=== PATIENT | female | born 1950 | race Caucasian/White ===

== ENCOUNTER 2023-03-08 17:09 | Inpatient (IN) | payer MEDICARE ==
[2023-03-08 17:57] LABS: #Basophils 0.1 thou/uL (0.0-0.2); #Eosinphils 0.3 thou/uL (0.0-0.7); #Monocytes 0.8 thou/uL (0.11-0.59); #Neutrophils 6.6 thou/uL (1.40-6.50); %Basophils 0.7 % (0.0-1.0); %Eosinophils 3.4 % (0.0-10.0); %Lymphocytes 13.3 % (21.0-51.0); %Monocytes 8.6 % (0.0-10.0); %Neutrophils 73.6 % (42.0-75.0); Hematocrit 39.5 % (36.0-47.0); Hemoglobin 13.1 g/dL (12.0-16.0); Mean Corpuscular HGB CONC 33.2 g/dL (32.0-36.0); Mean Corpuscular Hemoglobin 31.2 pg (27.0-31.0); Mean Platelet Volume 11.4 fL (7.4-10.4); Platelet Count 265 10x3/uL (130-400); RBC Distribution Width 16.3 % (11.5-14.5)
[2023-03-08] MEDS ORDERED: Furosemide 40 MG/4 ML VIAL ONE (18:19)
[2023-03-08 18:33] LABS: ALT (SGPT) 25 U/L (8-55); AST (SGOT) 25 U/L (5-34); Albumin 4.3 g/dL (3.4-4.8); Alkaline Phosphatase 106 U/L (40-110); Anion Gap 21 mmol/L (10-20); BUN (Urea Nitrogen) 64 mg/dL (9.8-20.1); Bilirubin, Total 0.8 mg/dL (0.2-1.2); Calc. Creatinine Clearance 0 mL/min (70-130); Calcium 9.9 mg/dL (7.8-10.44); Carbon Dioxide 26 mmol/L (23-31); Chloride 94 mmol/L (98-107); Estimated GFR 17; Globulin 3.7 g/dL (2.4-3.5); Glucose 228 mg/dL (83-110); Potassium 4.5 mmol/L (3.5-5.1); Sodium 136 mmol/L (136-145)
[2023-03-08] MEDS ORDERED: Nitroglycerin 2% Ointment 1 INCH/1 GM Packet ONE (18:36)
[2023-03-08 18:47] LABS: Troponin I 0.035 ng/mL (< 0.028)
[2023-03-08 19:48] LABS: Actual Bicarbonate (HCO3v) 27.4 mEq/L (22-28); Base Excess 1.8 mEq/L (-2.0 to +3.0); Calcium, Ionized (venous) 1.13 mmol/L (1.16-1.32); Chloride (VBG) 95 mmol/L (98-106); Hematocrit-VBG 40 % (36.0-47.0); Hemoglobin (Hb) 13.7 g/dL (11.7-16.1); Potassium (VBG) 4.82 mmol/L (3.70-5.30); Sodium 137 mmol/L (133-146); pH (venous) 7.384 (7.32-7.43)
[2023-03-08] MEDS ORDERED: Glucagon 1 MG/ML KIT IM PRN (21:06)
[2023-03-08] MEDS ORDERED: Dextrose 50% Abboject 50 ML SYRINGE SLOW IVP PRN (21:06)
[2023-03-08] MEDS ORDERED: Dextrose 5% in Water 1,000 ML IV PRN (21:06)
[2023-03-08] MEDS ORDERED: Calcium Carbonate 500 MG ChewTAB PO PRN (21:07)
[2023-03-08] MEDS ORDERED: HumaLOG 300 UNITS/3 ML VIAL SC PRN (21:07)
[2023-03-08] MEDS ORDERED: Acetaminophen 325 MG TAB PO PRN (21:07)
[2023-03-08] MEDS ORDERED: Ipratropium/Albuterol 3 ML NEB NEB PRN (21:32)
[2023-03-08] MEDS ORDERED: Ipratropium/Albuterol 3 ML NEB NEB SCH (21:45)
[2023-03-08] MEDS ORDERED: predniSONE 20 MG TAB PO SCH (22:00)
[2023-03-08 22:17] LABS: Hemoglobin A1c 10.4 % (4.0-6.0)
[2023-03-08 22:31] LABS: Cardiac Risk 3.4 (Less than 4.5)
[2023-03-08 22:35] LABS: Troponin I 0.044 ng/mL (< 0.028)
[2023-03-09 00:11] LABS: Hep C IgG Ab Non-Reactive S/CO (NonReactive)
[2023-03-09] MEDS ORDERED: Hydrochlorothiazide 25 MG TAB PO PRN (00:17)
[2023-03-09 00:25] LABS: SARS-CoV-2 NAA Rapid Test Not Detected (NotDetected)
[2023-03-09] MEDS: Gabapentin 100 MG CAP PO SCH ×2 (00:43→12:45)
[2023-03-09] MEDS: Dronedarone HCl 400 MG TAB PO SCH ×2 (00:44→12:45)
[2023-03-09] MEDS: Apixaban 5 MG TAB PO SCH ×2 (00:44→12:44)
[2023-03-09] MEDS: [UNRECOGNIZED DRUG - REMARK] PO SCH ×3 (01:41→13:05)
[2023-03-09] MEDS: CETIRIZINE 10 MG PO SCH (01:41)
[2023-03-09] MEDS: INSULN SC SCH ×2 (01:41→12:47)
[2023-03-09] MEDS: INSULIN DEGLUDEC 100 UNIT/ML SC SCH ×2 (01:41→12:47)
[2023-03-09] MEDS: Clobetasol 0.05% Cream 15 gm Tube TOP SCH ×2 (01:43→12:45)
[2023-03-09 01:45] LABS: Troponin I 0.047 ng/mL (< 0.028)
[2023-03-09] MEDS: Montelukast Sodium 10 mg Tablet PO SCH (01:49)
[2023-03-09 03:03] VITALS: BMI 42.5
[2023-03-09 03:58] LABS: #Basophils 0.1 thou/uL (0.0-0.2); #Eosinphils 0.3 thou/uL (0.0-0.7); #Monocytes 0.7 thou/uL (0.11-0.59); #Neutrophils 5.1 thou/uL (1.40-6.50); %Basophils 0.6 % (0.0-1.0); %Eosinophils 4.4 % (0.0-10.0); %Lymphocytes 19.3 % (21.0-51.0); %Monocytes 9.6 % (0.0-10.0); %Neutrophils 65.7 % (42.0-75.0); Hematocrit 35.8 % (36.0-47.0); Hemoglobin 11.7 g/dL (12.0-16.0); Mean Corpuscular HGB CONC 32.7 g/dL (32.0-36.0); Mean Corpuscular Hemoglobin 30.6 pg (27.0-31.0); Mean Corpuscular Volume 93.7 fl (78.0-98.0); Mean Platelet Volume 11.6 fL (7.4-10.4); Platelet Count 246 10x3/uL (130-400); RBC Distribution Width 15.9 % (11.5-14.5); Red Blood Cell (RBC) Count 3.82 mill/uL (4.20-5.40); White Blood Cell (WBC) Count 7.7 10x3/uL (4.8-10.8)
[2023-03-09 04:23] LABS: Anion Gap 17 mmol/L (10-20); BUN (Urea Nitrogen) 66 mg/dL (9.8-20.1); Calc. Creatinine Clearance 31 mL/min (70-130); Calcium 9.1 mg/dL (7.8-10.44); Carbon Dioxide 30 mmol/L (23-31); Chloride 94 mmol/L (98-107); Estimated GFR 18; Glucose 231 mg/dL (83-110); Magnesium 2.6 mg/dL (1.6-2.6); Potassium 4.4 mmol/L (3.5-5.1); Sodium 137 mmol/L (136-145)
[2023-03-09] MEDS: predniSONE 20 MG TAB PO SCH (08:30)
[2023-03-09] MEDS: Fluticasone Propionate Nasal Spray 16 gm Bottle NASAL SCH (08:32)
[2023-03-09] MEDS: Benzonatate 100 MG CAP PO SCH ×2 (08:32→14:24)
[2023-03-09] MEDS ORDERED: Empagliflozin 25 MG TAB PO SCH (09:00)
[2023-03-09] MEDS ORDERED: Rosuvastatin 20 MG TAB PO SCH ×2 (09:00→12:30)
[2023-03-09] MEDS ORDERED: Cetirizine HCl 10 MG TAB PO SCH (09:00)
[2023-03-09] MEDS ORDERED: Spironolactone 25 MG TAB PO SCH (09:00)
[2023-03-09] MEDS ORDERED: Amlodipine 10 MG TAB PO SCH (09:00)
[2023-03-09] MEDS ORDERED: Loratadine 10 MG TAB PO SCH (09:00)
[2023-03-09] MEDS ORDERED: DAPAGLIFLOZIN (FARXIGA) 10 MG TABLET PO SCH (09:00)
[2023-03-09] MEDS: Polyethylene Glycol 3350 17 GM Packet PO SCH (09:04)
[2023-03-09] MEDS: Famotidine 20 MG TAB PO SCH (09:05)
[2023-03-09] MEDS: LEVOTHYROXINE SODIUM 150 MCG PO SCH (09:09)
[2023-03-09] MEDS: Furosemide 40 MG/4 ML VIAL SLOW IVP SCH (09:10)
[2023-03-09] MEDS ORDERED: Metolazone 5 MG TAB PO SCH (10:00)
[2023-03-09] MEDS: Amlodipine 10 MG TAB PO SCH (12:44)
[2023-03-09] MEDS: Spironolactone 25 MG TAB PO SCH (12:46)
[2023-03-09] MEDS: Rosuvastatin 10 MG TAB PO SCH (12:46)
[2023-03-09] MEDS: DAPAGLIFLOZIN (FARXIGA) 10 MG TABLET PO SCH (13:03)
[2023-03-10] MEDS: [UNRECOGNIZED DRUG - REMARK] PO SCH ×2 (00:23→12:32)
[2023-03-10] MEDS: Clobetasol 0.05% Cream 15 gm Tube TOP SCH ×2 (00:23→12:30)
[2023-03-10] MEDS: CETIRIZINE 10 MG PO SCH (00:23)
[2023-03-10] MEDS: Montelukast Sodium 10 mg Tablet PO SCH ×2 (00:24→20:32)
[2023-03-10] MEDS: Apixaban 5 MG TAB PO SCH ×2 (00:24→12:29)
[2023-03-10] MEDS: Gabapentin 100 MG CAP PO SCH ×2 (00:24→12:30)
[2023-03-10] MEDS: Dronedarone HCl 400 MG TAB PO SCH ×2 (00:24→12:29)
[2023-03-10] MEDS: Benzonatate 100 MG CAP PO SCH ×5 (00:27→19:14)
[2023-03-10] MEDS: INSULN SC SCH ×2 (00:45→12:31)
[2023-03-10] MEDS: INSULIN DEGLUDEC 100 UNIT/ML SC SCH ×2 (00:45→12:31)
[2023-03-10 03:55] LABS: #Eosinphils 0.4 thou/uL (0.0-0.7); #Monocytes 0.9 thou/uL (0.11-0.59); #Neutrophils 5.9 thou/uL (1.40-6.50); %Basophils 0.5 % (0.0-1.0); %Monocytes 10.3 % (0.0-10.0); %Neutrophils 69.8 % (42.0-75.0); Hematocrit 37.2 % (36.0-47.0); Mean Corpuscular HGB CONC 32.3 g/dL (32.0-36.0); Mean Corpuscular Hemoglobin 30.4 pg (27.0-31.0); Mean Corpuscular Volume 94.2 fl (78.0-98.0); Platelet Count 240 10x3/uL (130-400); RBC Distribution Width 15.9 % (11.5-14.5); Red Blood Cell (RBC) Count 3.95 mill/uL (4.20-5.40); White Blood Cell (WBC) Count 8.4 10x3/uL (4.8-10.8)
[2023-03-10 04:18] LABS: Phosphorus 5.9 mg/dL (2.3-4.7)
[2023-03-10 04:19] LABS: Anion Gap 16 mmol/L (10-20); BUN (Urea Nitrogen) 64 mg/dL (9.8-20.1); Calc. Creatinine Clearance 30 mL/min (70-130); Calcium 8.9 mg/dL (7.8-10.44); Carbon Dioxide 31 mmol/L (23-31); Chloride 95 mmol/L (98-107); Estimated GFR 18; Glucose 144 mg/dL (83-110); Potassium 4.5 mmol/L (3.5-5.1); Sodium 137 mmol/L (136-145)
[2023-03-10] MEDS: Fluticasone Propionate Nasal Spray 16 gm Bottle NASAL SCH (08:59)
[2023-03-10] MEDS: Furosemide 40 MG/4 ML VIAL SLOW IVP SCH (09:10)
[2023-03-10] MEDS: predniSONE 20 MG TAB PO SCH (09:10)
[2023-03-10] MEDS: Famotidine 20 MG TAB PO SCH (09:10)
[2023-03-10] MEDS: Polyethylene Glycol 3350 17 GM Packet PO SCH (09:10)
[2023-03-10] MEDS: LEVOTHYROXINE SODIUM 150 MCG PO SCH (09:11)
[2023-03-10] MEDS ORDERED: Metolazone 5 MG TAB PO SCH (10:30)
[2023-03-10] MEDS: Ipratropium/Albuterol 3 ML NEB NEB SCH ×4 (10:38→22:25)
[2023-03-10] MEDS: Spironolactone 25 MG TAB PO SCH (12:28)
[2023-03-10] MEDS: Amlodipine 10 MG TAB PO SCH (12:29)
[2023-03-10] MEDS: Rosuvastatin 10 MG TAB PO SCH (12:29)
[2023-03-10] MEDS: DAPAGLIFLOZIN (FARXIGA) 10 MG TABLET PO SCH (12:31)
[2023-03-10] MEDS: HumaLOG 300 UNITS/3 ML VIAL SC PRN (20:31)
[2023-03-11] MEDS: Clobetasol 0.05% Cream 15 gm Tube TOP SCH ×2 (00:14→13:13)
[2023-03-11] MEDS: CETIRIZINE 10 MG PO SCH (00:15)
[2023-03-11] MEDS: Gabapentin 100 MG CAP PO SCH ×2 (00:15→13:12)
[2023-03-11] MEDS: [UNRECOGNIZED DRUG - REMARK] PO SCH ×2 (00:15→13:12)
[2023-03-11] MEDS: Dronedarone HCl 400 MG TAB PO SCH ×2 (00:15→13:11)
[2023-03-11] MEDS: Apixaban 5 MG TAB PO SCH ×2 (00:16→13:11)
[2023-03-11] MEDS: INSULN SC SCH ×2 (00:17→13:15)
[2023-03-11] MEDS: INSULIN DEGLUDEC 100 UNIT/ML SC SCH ×2 (00:17→13:15)
[2023-03-11] MEDS: Ipratropium/Albuterol 3 ML NEB NEB SCH ×6 (03:01→23:52)
[2023-03-11 04:20] LABS: #Monocytes 0.8 thou/uL (0.11-0.59); %Basophils 0.1 % (0.0-1.0); %Eosinophils 0.1 % (0.0-10.0); %Lymphocytes 10.2 % (21.0-51.0); %Monocytes 8.7 % (0.0-10.0); %Neutrophils 80.4 % (42.0-75.0); Hematocrit 33.7 % (36.0-47.0); Hemoglobin 11.2 g/dL (12.0-16.0); Mean Corpuscular HGB CONC 33.2 g/dL (32.0-36.0); Mean Corpuscular Volume 93.4 fl (78.0-98.0); Mean Platelet Volume 11.5 fL (7.4-10.4); Platelet Count 241 10x3/uL (130-400); RBC Distribution Width 15.4 % (11.5-14.5); Red Blood Cell (RBC) Count 3.61 mill/uL (4.20-5.40); White Blood Cell (WBC) Count 8.7 10x3/uL (4.8-10.8)
[2023-03-11 04:42] LABS: Anion Gap 16 mmol/L (10-20); BUN (Urea Nitrogen) 75 mg/dL (9.8-20.1); Calc. Creatinine Clearance 30 mL/min (70-130); Calcium 8.8 mg/dL (7.8-10.44); Carbon Dioxide 31 mmol/L (23-31); Chloride 91 mmol/L (98-107); Estimated GFR 18; Glucose 360 mg/dL (83-110); Phosphorus 5.1 mg/dL (2.3-4.7); Potassium 4.7 mmol/L (3.5-5.1); Sodium 133 mmol/L (136-145)
[2023-03-11] MEDS: HumaLOG 300 UNITS/3 ML VIAL SC PRN ×4 (05:54→20:31)
[2023-03-11 07:26] LABS: Phosphorus 5.9 mg/dL (2.3-4.7)
[2023-03-11] MEDS ORDERED: predniSONE 20 MG TAB PO SCH (08:00)
[2023-03-11] MEDS ORDERED: Metolazone 5 MG TAB PO SCH (08:30)
[2023-03-11] MEDS: Benzonatate 100 MG CAP PO SCH ×3 (09:33→20:36)
[2023-03-11] MEDS: Famotidine 20 MG TAB PO SCH (09:33)
[2023-03-11] MEDS: Fluticasone Propionate Nasal Spray 16 gm Bottle NASAL SCH (09:34)
[2023-03-11] MEDS: Polyethylene Glycol 3350 17 GM Packet PO SCH (09:34)
[2023-03-11] MEDS: Furosemide 40 MG/4 ML VIAL SLOW IVP SCH (09:34)
[2023-03-11] MEDS: LEVOTHYROXINE SODIUM 150 MCG PO SCH (09:37)
[2023-03-11] MEDS ORDERED: Insulin Glargine 30 UNITS/0.3 ML VIAL SC SCH (12:00)
[2023-03-11] MEDS: Amlodipine 10 MG TAB PO SCH (13:11)
[2023-03-11] MEDS: Rosuvastatin 10 MG TAB PO SCH (13:11)
[2023-03-11] MEDS: Spironolactone 25 MG TAB PO SCH (13:11)
[2023-03-11] MEDS: DAPAGLIFLOZIN (FARXIGA) 10 MG TABLET PO SCH (13:16)
[2023-03-11] MEDS: Montelukast Sodium 10 mg Tablet PO SCH (20:30)
[2023-03-12] MEDS: Apixaban 5 MG TAB PO SCH ×2 (00:35→12:27)
[2023-03-12] MEDS: Dronedarone HCl 400 MG TAB PO SCH ×2 (00:35→13:41)
[2023-03-12] MEDS: Clobetasol 0.05% Cream 15 gm Tube TOP SCH ×2 (00:35→12:29)
[2023-03-12] MEDS: Gabapentin 100 MG CAP PO SCH ×2 (00:35→13:41)
[2023-03-12] MEDS: [UNRECOGNIZED DRUG - REMARK] PO SCH (00:35)
[2023-03-12] MEDS: INSULIN DEGLUDEC 100 UNIT/ML SC SCH ×2 (00:36→13:43)
[2023-03-12] MEDS: INSULN SC SCH ×2 (00:36→13:43)
[2023-03-12] MEDS: CETIRIZINE 10 MG PO SCH (00:36)
[2023-03-12] MEDS: Ipratropium/Albuterol 3 ML NEB NEB SCH ×6 (02:34→22:10)
[2023-03-12 06:24] LABS: #Eosinphils 0.1 thou/uL (0.0-0.7); #Monocytes 0.8 thou/uL (0.11-0.59); #Neutrophils 5.6 thou/uL (1.40-6.50); %Basophils 0.4 % (0.0-1.0); %Eosinophils 1.3 % (0.0-10.0); %Lymphocytes 15.5 % (21.0-51.0); %Monocytes 10.6 % (0.0-10.0); %Neutrophils 71.8 % (42.0-75.0); Hematocrit 35.6 % (36.0-47.0); Hemoglobin 11.8 g/dL (12.0-16.0); Mean Corpuscular HGB CONC 33.1 g/dL (32.0-36.0); Mean Corpuscular Hemoglobin 30.6 pg (27.0-31.0); Mean Corpuscular Volume 92.5 fl (78.0-98.0); Mean Platelet Volume 11.5 fL (7.4-10.4); Platelet Count 247 10x3/uL (130-400); RBC Distribution Width 15.6 % (11.5-14.5); Red Blood Cell (RBC) Count 3.85 mill/uL (4.20-5.40); White Blood Cell (WBC) Count 7.8 10x3/uL (4.8-10.8)
[2023-03-12 06:49] LABS: Anion Gap 17 mmol/L (10-20); BUN (Urea Nitrogen) 85 mg/dL (9.8-20.1); Calc. Creatinine Clearance 30 mL/min (70-130); Calcium 9.1 mg/dL (7.8-10.44); Carbon Dioxide 29 mmol/L (23-31); Chloride 94 mmol/L (98-107); Estimated GFR 18; Glucose 223 mg/dL (83-110); Potassium 4.4 mmol/L (3.5-5.1); Sodium 136 mmol/L (136-145)
[2023-03-12 07:11] LABS: Anion Gap 17 mmol/L (10-20); BUN (Urea Nitrogen) 86 mg/dL (9.8-20.1); BUN/Creatinine Ratio 30.71; Calc. Creatinine Clearance 29 mL/min (70-130); Calcium 9.1 mg/dL (7.8-10.44); Carbon Dioxide 29 mmol/L (23-31); Chloride 94 mmol/L (98-107); Estimated GFR 18; Glucose 223 mg/dL (83-110); Phosphorus 6.2 mg/dL (2.3-4.7); Potassium 4.4 mmol/L (3.5-5.1); Sodium 136 mmol/L (136-145)
[2023-03-12] MEDS ORDERED: predniSONE 5 MG TAB PO SCH (08:00)
[2023-03-12] MEDS: Benzonatate 100 MG CAP PO SCH ×3 (08:22→20:30)
[2023-03-12] MEDS: Fluticasone Propionate Nasal Spray 16 gm Bottle NASAL SCH (08:24)
[2023-03-12] MEDS: Furosemide 40 MG/4 ML VIAL SLOW IVP SCH (08:24)
[2023-03-12] MEDS: LEVOTHYROXINE SODIUM 150 MCG PO SCH (08:25)
[2023-03-12] MEDS: Polyethylene Glycol 3350 17 GM Packet PO SCH (08:25)
[2023-03-12] MEDS ORDERED: Insulin Glargine 30 UNITS/0.3 ML VIAL SC SCH (09:00)
[2023-03-12] MEDS: Amlodipine 10 MG TAB PO SCH (12:26)
[2023-03-12] MEDS: Spironolactone 25 MG TAB PO SCH (12:27)
[2023-03-12] MEDS: Rosuvastatin 10 MG TAB PO SCH (12:27)
[2023-03-12] MEDS: DAPAGLIFLOZIN (FARXIGA) 10 MG TABLET PO SCH (13:54)
[2023-03-12] MEDS: Loratadine 10 MG TAB PO SCH (20:30)
[2023-03-12] MEDS: Montelukast Sodium 10 mg Tablet PO SCH (20:30)
[2023-03-13] MEDS: [UNRECOGNIZED DRUG - REMARK] PO SCH ×3 (00:04→12:36)
[2023-03-13] MEDS: Dronedarone HCl 400 MG TAB PO SCH ×2 (00:25→12:35)
[2023-03-13] MEDS: Gabapentin 100 MG CAP PO SCH ×2 (00:25→12:33)
[2023-03-13] MEDS: Apixaban 5 MG TAB PO SCH ×2 (00:25→12:35)
[2023-03-13] MEDS: Clobetasol 0.05% Cream 15 gm Tube TOP SCH ×2 (00:26→12:35)
[2023-03-13] MEDS: CETIRIZINE 10 MG PO SCH (00:26)
[2023-03-13] MEDS: INSULIN DEGLUDEC 100 UNIT/ML SC SCH (00:27)
[2023-03-13] MEDS: INSULN SC SCH (00:27)
[2023-03-13] MEDS: Ipratropium/Albuterol 3 ML NEB NEB SCH ×6 (02:03→22:30)
[2023-03-13 04:56] LABS: #Eosinphils 0.2 thou/uL (0.0-0.7); #Monocytes 0.9 thou/uL (0.11-0.59); %Basophils 0.4 % (0.0-1.0); %Eosinophils 2.6 % (0.0-10.0); %Lymphocytes 16.7 % (21.0-51.0); %Monocytes 12.5 % (0.0-10.0); %Neutrophils 67.7 % (42.0-75.0); Hematocrit 35.6 % (36.0-47.0); Hemoglobin 11.6 g/dL (12.0-16.0); Mean Corpuscular HGB CONC 32.6 g/dL (32.0-36.0); Mean Corpuscular Hemoglobin 30.7 pg (27.0-31.0); Mean Corpuscular Volume 94.2 fl (78.0-98.0); Mean Platelet Volume 11.7 fL (7.4-10.4); Platelet Count 251 10x3/uL (130-400); RBC Distribution Width 15.8 % (11.5-14.5); Red Blood Cell (RBC) Count 3.78 mill/uL (4.20-5.40); White Blood Cell (WBC) Count 7.4 10x3/uL (4.8-10.8)
[2023-03-13 05:19] LABS: Albumin 3.8 g/dL (3.4-4.8); Anion Gap 16 mmol/L (10-20); BUN (Urea Nitrogen) 97 mg/dL (9.8-20.1); BUN/Creatinine Ratio 29.94; Calc. Creatinine Clearance 25 mL/min (70-130); Calcium 8.9 mg/dL (7.8-10.44); Carbon Dioxide 32 mmol/L (23-31); Chloride 93 mmol/L (98-107); Estimated GFR 15; Glucose 230 mg/dL (83-110); Phosphorus 5.6 mg/dL (2.3-4.7); Potassium 4.4 mmol/L (3.5-5.1); Sodium 137 mmol/L (136-145)
[2023-03-13] MEDS: Benzonatate 100 MG CAP PO SCH ×3 (09:20→21:34)
[2023-03-13] MEDS: NIFEdipine XL 60 MG ER.TAB PO SCH ×2 (09:20→10:58)
[2023-03-13] MEDS: Famotidine 20 MG TAB PO SCH (09:20)
[2023-03-13] MEDS: predniSONE 5 MG TAB PO SCH (09:21)
[2023-03-13] MEDS: Polyethylene Glycol 3350 17 GM Packet PO SCH (09:21)
[2023-03-13] MEDS: Fluticasone Propionate Nasal Spray 16 gm Bottle NASAL SCH (09:23)
[2023-03-13] MEDS ORDERED: LEVOTHYROXINE SODIUM 150 MCG PO SCH (10:00)
[2023-03-13] MEDS ORDERED: NIFEdipine XL 60 MG ER.TAB PO SCH (10:30)
[2023-03-13] MEDS ORDERED: PATIENT'S HOME MEDICATION SC SCH (12:30)
[2023-03-13] MEDS ORDERED: Rosuvastatin 10 MG TAB PO SCH (12:45)
[2023-03-13] MEDS ORDERED: INSULIN DEGLUDEC 100 UNIT/ML SC SCH (13:15)
[2023-03-13] MEDS: Montelukast Sodium 10 mg Tablet PO SCH (21:34)
[2023-03-13] MEDS: Loratadine 10 MG TAB PO SCH (21:34)
[2023-03-14] MEDS: CETIRIZINE 10 MG PO SCH (00:04)
[2023-03-14] MEDS: INSULIN DEGLUDEC 100 UNIT/ML SC SCH ×2 (00:05→12:20)
[2023-03-14] MEDS: [UNRECOGNIZED DRUG - REMARK] PO SCH ×2 (00:06→12:21)
[2023-03-14] MEDS: Clobetasol 0.05% Cream 15 gm Tube TOP SCH ×2 (00:07→12:19)
[2023-03-14] MEDS: Gabapentin 100 MG CAP PO SCH ×2 (00:10→12:28)
[2023-03-14] MEDS: Dronedarone HCl 400 MG TAB PO SCH ×2 (00:11→12:29)
[2023-03-14] MEDS: Apixaban 5 MG TAB PO SCH ×2 (00:11→12:29)
[2023-03-14] MEDS: Ipratropium/Albuterol 3 ML NEB NEB SCH ×3 (03:20→11:17)
[2023-03-14 04:42] LABS: #Eosinphils 0.4 thou/uL (0.0-0.7); %Basophils 0.5 % (0.0-1.0); %Eosinophils 4.9 % (0.0-10.0); %Lymphocytes 14.6 % (21.0-51.0); %Monocytes 13.7 % (0.0-10.0); %Neutrophils 65.9 % (42.0-75.0); Hematocrit 38.2 % (36.0-47.0); Hemoglobin 12.5 g/dL (12.0-16.0); Mean Corpuscular HGB CONC 32.7 g/dL (32.0-36.0); Mean Corpuscular Volume 94.8 fl (78.0-98.0); Mean Platelet Volume 11.1 fL (7.4-10.4); Platelet Count 269 10x3/uL (130-400); RBC Distribution Width 15.6 % (11.5-14.5); Red Blood Cell (RBC) Count 4.03 mill/uL (4.20-5.40); White Blood Cell (WBC) Count 7.5 10x3/uL (4.8-10.8)
[2023-03-14] MEDS ORDERED: LEVOTHYROXINE SODIUM 150 MCG PO SCH (06:00)
[2023-03-14] MEDS ORDERED: Levothyroxine 150 MCG TAB PO SCH (06:00)
[2023-03-14 06:39] LABS: Anion Gap 16 mmol/L (10-20); BUN (Urea Nitrogen) 95 mg/dL (9.8-20.1); Calc. Creatinine Clearance 27 mL/min (70-130); Calcium 9.1 mg/dL (7.8-10.44); Carbon Dioxide 33 mmol/L (23-31); Chloride 93 mmol/L (98-107); Estimated GFR 17; Glucose 111 mg/dL (83-110); Potassium 4.1 mmol/L (3.5-5.1); Sodium 138 mmol/L (136-145)
[2023-03-14] MEDS ORDERED: NIFEdipine XL 60 MG ER.TAB PO SCH ×2 (09:00→09:45)
[2023-03-14] MEDS ORDERED: NIFEdipine XL 90 MG ER.TAB PO SCH (09:00)
[2023-03-14] MEDS: Polyethylene Glycol 3350 17 GM Packet PO SCH (09:35)
[2023-03-14] MEDS: Fluticasone Propionate Nasal Spray 16 gm Bottle NASAL SCH (09:36)
[2023-03-14] MEDS: predniSONE 5 MG TAB PO SCH (09:37)
[2023-03-14] MEDS: Benzonatate 100 MG CAP PO SCH ×2 (09:38→12:29)
[2023-03-14] MEDS: Famotidine 20 MG TAB PO SCH (09:39)
[2023-03-14 12:03] VITALS: TEMP 97.8
[2023-03-14] MEDS: Rosuvastatin 10 MG TAB PO SCH (12:29)
[2023-03-14 15:59] VITALS: BP 145/65
[2023-03-15] MEDS ORDERED: NIFEdipine XL 60 MG ER.TAB PO SCH (09:00)
== END 2023-03-14 18:05 | disposition home health service (06) | DRG 291 ==
LOC: ERS 17:09 → IMCU/EMU 20:28 → 2SE 03-12 10:02
PROVIDERS: ADMIT Student in an Organized Health Care Education/Training Program; ATTEND Student in an Organized Health Care Education/Training Program
PROC: 5A09357 Assistance with Respiratory Ventilation, Less than 24 Consecutive Hours, Continuous Positive Airway Pressure (ICD-10-PCS; principal; 2023-03-08)
DX: I13.0 Hypertensive heart and chronic kidney disease with heart failure and stage 1 through stage 4 chronic kidney disease, or unspecified chronic kidney disease (principal); I50.33 Acute on chronic diastolic (congestive) heart failure; J96.01 Acute respiratory failure with hypoxia; N18.4 Chronic kidney disease, stage 4 (severe); I24.89 Other forms of acute ischemic heart disease; N17.9 Acute kidney failure, unspecified; E87.1 Hypo-osmolality and hyponatremia; R18.8 Other ascites; I48.91 Unspecified atrial fibrillation; E78.5 Hyperlipidemia, unspecified; E03.9 Hypothyroidism, unspecified; E11.22 Type 2 diabetes mellitus with diabetic chronic kidney disease; I45.9 Conduction disorder, unspecified; J45.909 Unspecified asthma, uncomplicated; G47.33 Obstructive sleep apnea (adult) (pediatric); I44.7 Left bundle-branch block, unspecified; E83.39 Other disorders of phosphorus metabolism; E66.9 Obesity, unspecified; E11.21 Type 2 diabetes mellitus with diabetic nephropathy; E66.01 Morbid (severe) obesity due to excess calories; E11.65 Type 2 diabetes mellitus with hyperglycemia; K76.0 Fatty (change of) liver, not elsewhere classified; Z20.822 Contact with and (suspected) exposure to COVID-19; Z88.5 Allergy status to narcotic agent; Z88.0 Allergy status to penicillin; Z98.890 Other specified postprocedural states; Z88.8 Allergy status to other drugs, medicaments and biological substances; Z79.01 Long term (current) use of anticoagulants; Z79.899 Other long term (current) drug therapy; Z79.4 Long term (current) use of insulin; Z95.0 Presence of cardiac pacemaker
CPT/HCPCS: 36415; 36416; 71045; 80048; 80053; 80061; 80069; 82040; 82805; 83036; 83735; 83880; 84100; 84443; 84484; 85025; 86140; 86803; 87633; 93005; 94640; 94660; 96374; J1815; J1940; J7512; J7620

== ENCOUNTER 2023-10-24 18:23 | Inpatient (IN) | payer MEDICARE ==
[2023-10-24 20:24] VITALS: BMI 43.9
[2023-10-24] MEDS ORDERED: Acetaminophen 325 MG TAB PO PRN (20:32)
[2023-10-24] MEDS ORDERED: Dextrose 50% Abboject 50 ML SYRINGE SLOW IVP PRN (21:28)
[2023-10-24] MEDS ORDERED: Glucagon 1 MG/ML KIT IM PRN (21:28)
[2023-10-24] MEDS ORDERED: HumaLOG 300 UNITS/3 ML VIAL SC PRN ×2 (21:28)
[2023-10-24] MEDS ORDERED: Dextrose 5% in Water 1,000 ML IV PRN (21:28)
[2023-10-24] MEDS: Apixaban 5 MG TAB PO SCH (22:16)
[2023-10-25] MEDS: Loratadine 10 MG TAB PO SCH (00:12)
[2023-10-25 04:58] LABS: #Basophils Less than 0.03 10x3/uL (0.0-0.2); %Basophils 0.7 % (0.0-1.0); %Eosinophils 4.4 % (0.0-10.0); %Lymphocytes 21.4 % (21.0-51.0); %Monocytes 15.6 % (0.0-10.0); %Neutrophils 57.6 % (42.0-75.0); Hematocrit 29.4 % (36.0-47.0); Hemoglobin 9.4 g/dL (12.0-16.0); Mean Corpuscular Hemoglobin 30.9 pg (27.0-31.0); Mean Corpuscular Volume 96.7 fL (78.0-98.0); Mean Platelet Volume 11.8 fL (7.4-10.4); Platelet Count 175 10x3/uL (130-400); RBC Distribution Width 14.7 % (11.5-14.5); Red Blood Cell (RBC) Count 3.04 mill/uL (4.20-5.40)
[2023-10-25 05:11] LABS: Phosphorus 4.6 mg/dL (2.3-4.7)
[2023-10-25 05:14] LABS: ALT (SGPT) 20 U/L (8-55); AST (SGOT) 18 U/L (5-34); Albumin 3.3 g/dL (3.4-4.8); Alkaline Phosphatase 64 U/L (40-110); Anion Gap 14 mmol/L (10-20); BUN (Urea Nitrogen) 61 mg/dL (9.8-20.1); Bilirubin, Total 0.8 mg/dL (0.2-1.2); Calc. Creatinine Clearance 35 mL/min (70-130); Calcium 8.7 mg/dL (7.8-10.44); Carbon Dioxide 33 mmol/L (23-31); Chloride 97 mmol/L (98-107); Estimated GFR 20; Globulin 3.1 g/dL (2.4-3.5); Glucose 143 mg/dL (83-110); Magnesium 2.3 mg/dL (1.6-2.6); Protein, Total 6.4 g/dL (5.8-8.1); Sodium 140 mmol/L (136-145)
[2023-10-25] MEDS: Levothyroxine 150 MCG TAB PO SCH (06:33)
[2023-10-25] MEDS: Pantoprazole DR 40 MG TAB PO SCH (09:06)
[2023-10-25] MEDS: NIFEdipine XL 60 MG ER.TAB PO SCH (09:06)
[2023-10-25] MEDS: Apixaban 5 MG TAB PO SCH (09:07)
[2023-10-25] MEDS: Torsemide 20 MG TAB PO SCH (09:07)
[2023-10-25] MEDS: Folic Acid 1 MG TAB PO SCH (09:07)
[2023-10-25] MEDS: Gabapentin 100 MG CAP PO SCH (09:07)
[2023-10-25] MEDS: Dronedarone HCl 400 MG TAB PO SCH (09:07)
[2023-10-25] MEDS: Empagliflozin 25 MG TAB PO SCH (09:07)
[2023-10-25] MEDS: Insulin Glargine 30 UNITS/0.3 ML VIAL SC SCH (09:08)
[2023-10-25] MEDS: Polyethylene Glycol 3350 17 GM Packet PO SCH (10:31)
[2023-10-25] MEDS: HumaLOG 300 UNITS/3 ML VIAL SC SCH (10:31)
[2023-10-25] MEDS: Furosemide 40 MG (4 mL) VIAL SLOW IVP SCH ×2 (10:31→17:58)
[2023-10-25] MEDS: AcetaZOLAMIDE ER 500 MG CAP PO SCH ×2 (15:02→22:13)
[2023-10-25] MEDS: Rosuvastatin 10 MG TAB PO SCH (21:43)
[2023-10-26 04:35] LABS: #Basophils 0.03 10x3/uL (0.0-0.2); %Basophils 1.1 % (0.0-1.0); %Eosinophils 5.9 % (0.0-10.0); %Lymphocytes 24.9 % (21.0-51.0); %Monocytes 19.7 % (0.0-10.0); Hematocrit 29.7 % (36.0-47.0); Hemoglobin 9.1 g/dL (12.0-16.0); Mean Corpuscular HGB CONC 30.6 g/dL (32.0-36.0); Mean Platelet Volume 11.5 fL (7.4-10.4); Platelet Count 171 10x3/uL (130-400); RBC Distribution Width 14.6 % (11.5-14.5); Red Blood Cell (RBC) Count 3.03 mill/uL (4.20-5.40)
[2023-10-26 05:10] LABS: ALT (SGPT) 12 U/L (8-55); AST (SGOT) 16 U/L (5-34); Albumin 3.2 g/dL (3.4-4.8); Alkaline Phosphatase 56 U/L (40-110); Anion Gap 14 mmol/L (10-20); BUN (Urea Nitrogen) 59 mg/dL (9.8-20.1); Bilirubin, Total 0.7 mg/dL (0.2-1.2); Calc. Creatinine Clearance 40 mL/min (70-130); Calcium 9.1 mg/dL (7.8-10.44); Carbon Dioxide 34 mmol/L (23-31); Chloride 98 mmol/L (98-107); Estimated GFR 24; Globulin 3.2 g/dL (2.4-3.5); Glucose 74 mg/dL (83-110); Potassium 3.8 mmol/L (3.5-5.1); Protein, Total 6.4 g/dL (5.8-8.1); Sodium 142 mmol/L (136-145)
[2023-10-26] MEDS: Metolazone 2.5 MG TAB PO SCH (09:05)
[2023-10-26] MEDS: Furosemide 40 MG (4 mL) VIAL SLOW IVP SCH ×3 (09:06→17:11)
[2023-10-26] MEDS: AcetaZOLAMIDE ER 500 MG CAP PO SCH (09:06)
[2023-10-26] MEDS: Insulin Glargine 30 UNITS/0.3 ML VIAL SC SCH ×2 (09:07→22:20)
[2023-10-26 10:37] LABS: Actual Bicarbonate (HCO3a) 34.9 mEq/L (22-28); Base Excess (BEa) 8.1 mEq/L (-2.0 to +3.0); Calcium, Ionized (arterial) 1.12 mmol/L (1.12-1.30); Carboxyhemoglobin (COHb) 1.2 gm% (0.0-3.0); Hematocrit-ABG 30 % (36.0-47.0); Hemoglobin (Hb) 10.1 g/dL (12.0-16.0); O2 Tension (PaO2), arterial 64.5 mmHg (> 70.0); Potassium - ABG Lab 3.82 mmol/L (3.70-5.30); pH, Arterial 7.368 (7.35-7.45)
[2023-10-26 10:40] LABS: CO2 Tension 62.1 mmHg (35.0-45.0)
[2023-10-26 10:41] LABS: Puncture Site LRA
[2023-10-26 10:42] LABS: ALV-art Gradient 57.515 mmHg (0-20)
[2023-10-27 06:23] LABS: #Basophils Less than 0.03 10x3/uL (0.0-0.2); %Basophils 0.8 % (0.0-1.0); %Eosinophils 6.4 % (0.0-10.0); %Lymphocytes 22.7 % (21.0-51.0); %Monocytes 19.9 % (0.0-10.0); %Neutrophils 49.4 % (42.0-75.0); Hemoglobin 9.6 g/dL (12.0-16.0); Mean Platelet Volume 11.5 fL (7.4-10.4); Platelet Count 188 10x3/uL (130-400); RBC Distribution Width 14.5 % (11.5-14.5)
[2023-10-27 06:56] LABS: ALT (SGPT) 15 U/L (8-55); AST (SGOT) 16 U/L (5-34); Albumin 3.2 g/dL (3.4-4.8); Alkaline Phosphatase 59 U/L (40-110); Anion Gap 14 mmol/L (10-20); BUN (Urea Nitrogen) 54 mg/dL (9.8-20.1); Bilirubin, Total 0.5 mg/dL (0.2-1.2); Calc. Creatinine Clearance 0 mL/min (70-130); Carbon Dioxide 35 mmol/L (23-31); Chloride 97 mmol/L (98-107); Estimated GFR 24; Globulin 3.3 g/dL (2.4-3.5); Glucose 101 mg/dL (83-110); Potassium 3.5 mmol/L (3.5-5.1); Protein, Total 6.5 g/dL (5.8-8.1); Sodium 142 mmol/L (136-145)
[2023-10-27 08:32] LABS: Magnesium 2.3 mg/dL (1.6-2.6)
[2023-10-27] MEDS: Potassium Bicarbonate/Cit Ac 20 MEQ TAB PO SCH (09:09)
[2023-10-27] MEDS: Spironolactone 100 MG TAB PO SCH (09:10)
[2023-10-28 05:41] LABS: #Basophils Less than 0.03 10x3/uL (0.0-0.2); %Basophils 0.7 % (0.0-1.0); %Eosinophils 5.4 % (0.0-10.0); %Lymphocytes 32.6 % (21.0-51.0); %Neutrophils 43.9 % (42.0-75.0); Hematocrit 31.3 % (36.0-47.0); Mean Corpuscular HGB CONC 31.9 g/dL (32.0-36.0); Mean Corpuscular Hemoglobin 31.2 pg (27.0-31.0); Mean Corpuscular Volume 97.5 fL (78.0-98.0); Platelet Count 223 10x3/uL (130-400); RBC Distribution Width 14.5 % (11.5-14.5); Red Blood Cell (RBC) Count 3.21 mill/uL (4.20-5.40)
[2023-10-28 06:05] LABS: ALT (SGPT) 11 U/L (8-55); AST (SGOT) 17 U/L (5-34); Albumin 3.4 g/dL (3.4-4.8); Alkaline Phosphatase 60 U/L (40-110); Anion Gap 17 mmol/L (10-20); BUN (Urea Nitrogen) 55 mg/dL (9.8-20.1); Bilirubin, Total 0.5 mg/dL (0.2-1.2); Calc. Creatinine Clearance 0 mL/min (70-130); Calcium 9.6 mg/dL (7.8-10.44); Carbon Dioxide 36 mmol/L (23-31); Chloride 93 mmol/L (98-107); Estimated GFR 24; Globulin 3.5 g/dL (2.4-3.5); Glucose 66 mg/dL (83-110); Potassium 3.5 mmol/L (3.5-5.1); Protein, Total 6.9 g/dL (5.8-8.1); Sodium 142 mmol/L (136-145)
[2023-10-29 05:34] LABS: Hematocrit 31.8 % (36.0-47.0); Hemoglobin 10.1 g/dL (12.0-16.0); Mean Corpuscular HGB CONC 31.8 g/dL (32.0-36.0); Mean Corpuscular Hemoglobin 30.4 pg (27.0-31.0); Mean Corpuscular Volume 95.8 fL (78.0-98.0); Mean Platelet Volume 11.9 fL (7.4-10.4); Platelet Count 208 10x3/uL (130-400); RBC Distribution Width 14.5 % (11.5-14.5); Red Blood Cell (RBC) Count 3.32 mill/uL (4.20-5.40)
[2023-10-29 06:00] LABS: Eosinophils 6 % (0-10); Lymphocytes 17 % (21-51); Monocytes 11 % (0-10); Neutrophil 65 % (42-75); Platelet Adequacy Comment Platelets Normal; Polychromasia SLIGHT = 2-3 cells HPF (0-2); Target Cells SLIGHT = 2-5 cells HPF (0-1); Tear Drops SLIGHT = 2-5 cells HPF (0-1); Toxic Granulation SLIGHT
[2023-10-29 06:01] LABS: ALT (SGPT) 9 U/L (8-55); AST (SGOT) 15 U/L (5-34); Albumin 3.3 g/dL (3.4-4.8); Alkaline Phosphatase 57 U/L (40-110); Anion Gap 13 mmol/L (10-20); BUN (Urea Nitrogen) 55 mg/dL (9.8-20.1); Bilirubin, Total 0.4 mg/dL (0.2-1.2); Calc. Creatinine Clearance 38 mL/min (70-130); Calcium 9.6 mg/dL (7.8-10.44); Carbon Dioxide 36 mmol/L (23-31); Chloride 93 mmol/L (98-107); Estimated GFR 24; Globulin 3.3 g/dL (2.4-3.5); Glucose 90 mg/dL (83-110); Potassium 3.2 mmol/L (3.5-5.1); Protein, Total 6.6 g/dL (5.8-8.1); Sodium 139 mmol/L (136-145)
[2023-10-29 06:39] LABS: Magnesium 2.3 mg/dL (1.6-2.6)
[2023-10-29] MEDS ORDERED: Potassium Chloride 20 MEQ TAB PO SCH (07:15)
[2023-10-29] MEDS: Torsemide 100 MG TAB PO SCH (08:12)
[2023-10-29] MEDS: Potassium Chloride 20 MEQ TAB PO SCH (08:14)
[2023-10-30 04:32] LABS: Hematocrit 31.7 % (36.0-47.0); Hemoglobin 10.1 g/dL (12.0-16.0); Mean Corpuscular HGB CONC 31.9 g/dL (32.0-36.0); Mean Corpuscular Hemoglobin 30.2 pg (27.0-31.0); Mean Corpuscular Volume 94.9 fL (78.0-98.0); Mean Platelet Volume 11.8 fL (7.4-10.4); Platelet Count 211 10x3/uL (130-400); RBC Distribution Width 14.1 % (11.5-14.5); Red Blood Cell (RBC) Count 3.34 mill/uL (4.20-5.40)
[2023-10-30 05:02] LABS: Eosinophils 4 % (0-10); Large Platelets 6.7 % (0-5); Lymphocytes 16 % (21-51); Monocytes 9 % (0-10); Neutrophil 68 % (42-75); Platelet Adequacy Comment Platelets Normal; RBC Morphology Within Normal Limits; Reactive Lymphocytes 2 % (0-10)
[2023-10-30 05:04] LABS: ALT (SGPT) 12 U/L (8-55); AST (SGOT) 14 U/L (5-34); Albumin 3.4 g/dL (3.4-4.8); Alkaline Phosphatase 58 U/L (40-110); Anion Gap 13 mmol/L (10-20); BUN (Urea Nitrogen) 56 mg/dL (9.8-20.1); Bilirubin, Total 0.4 mg/dL (0.2-1.2); Calc. Creatinine Clearance 33 mL/min (70-130); Calcium 9.2 mg/dL (7.8-10.44); Carbon Dioxide 35 mmol/L (23-31); Chloride 96 mmol/L (98-107); Estimated GFR 20; Globulin 3.2 g/dL (2.4-3.5); Glucose 107 mg/dL (83-110); Potassium 3.4 mmol/L (3.5-5.1); Protein, Total 6.6 g/dL (5.8-8.1); Sodium 141 mmol/L (136-145)
[2023-10-30] MEDS: Torsemide 20 MG TAB PO SCH (08:54)
[2023-10-30] MEDS: Potassium Chloride 20 MEQ TAB PO SCH (08:54)
[2023-10-30] MEDS: Insulin Glargine 30 UNITS/0.3 ML VIAL SC SCH (08:56)
[2023-10-31 04:15] LABS: Hematocrit 31.9 % (36.0-47.0); Mean Corpuscular HGB CONC 31.3 g/dL (32.0-36.0); Mean Corpuscular Hemoglobin 30.4 pg (27.0-31.0); Mean Platelet Volume 11.6 fL (7.4-10.4); Platelet Count 216 10x3/uL (130-400); RBC Distribution Width 14.1 % (11.5-14.5); Red Blood Cell (RBC) Count 3.29 mill/uL (4.20-5.40)
[2023-10-31 04:38] LABS: ALT (SGPT) 12 U/L (8-55); AST (SGOT) 17 U/L (5-34); Albumin 3.4 g/dL (3.4-4.8); Alkaline Phosphatase 59 U/L (40-110); Anion Gap 16 mmol/L (10-20); BUN (Urea Nitrogen) 55 mg/dL (9.8-20.1); Bilirubin, Total 0.4 mg/dL (0.2-1.2); Calc. Creatinine Clearance 34 mL/min (70-130); Calcium 9.3 mg/dL (7.8-10.44); Carbon Dioxide 34 mmol/L (23-31); Chloride 95 mmol/L (98-107); Estimated GFR 21; Globulin 3.3 g/dL (2.4-3.5); Glucose 99 mg/dL (83-110); Potassium 3.5 mmol/L (3.5-5.1); Protein, Total 6.7 g/dL (5.8-8.1); Sodium 141 mmol/L (136-145)
[2023-10-31 05:01] LABS: Anisocytosis SLIGHT = 6-15 cells HPF (0-5); Eosinophils 3 % (0-10); Giant Platelets 2.9 % (0-5); Lymphocytes 18 % (21-51); Monocytes 17 % (0-10); Neutrophil 56 % (42-75); Platelet Adequacy Comment Platelets Normal; Polychromasia SLIGHT = 2-3 cells HPF (0-2)
[2023-10-31 07:37] LABS: Magnesium 2.5 mg/dL (1.6-2.6); Phosphorus 4.5 mg/dL (2.3-4.7)
[2023-10-31] MEDS: Potassium Chloride 20 MEQ TAB PO SCH (09:18)
[2023-10-31 16:08] VITALS: BP 124/59; TEMP 97.6
[2023-10-31 17:24] VITALS: BMI 41.1
[2023-11-01] MEDS ORDERED: Potassium Chloride 20 MEQ TAB PO SCH (08:00)
== END 2023-10-31 18:49 | disposition home health service (06) | DRG 291 ==
LOC: 2NO 18:25
PROVIDERS: ADMIT Family Medicine; ATTEND Family Medicine
PROC: 5A09357 Assistance with Respiratory Ventilation, Less than 24 Consecutive Hours, Continuous Positive Airway Pressure (ICD-10-PCS; principal; 2023-10-26)
DX: I13.0 Hypertensive heart and chronic kidney disease with heart failure and stage 1 through stage 4 chronic kidney disease, or unspecified chronic kidney disease (principal); I50.33 Acute on chronic diastolic (congestive) heart failure; J96.21 Acute and chronic respiratory failure with hypoxia; E87.3 Alkalosis; N18.4 Chronic kidney disease, stage 4 (severe); E66.2 Morbid (severe) obesity with alveolar hypoventilation; Z68.41 Body mass index [BMI] 40.0-44.9, adult; N17.9 Acute kidney failure, unspecified; G93.49 Other encephalopathy; E87.6 Hypokalemia; E11.22 Type 2 diabetes mellitus with diabetic chronic kidney disease; E11.21 Type 2 diabetes mellitus with diabetic nephropathy; E87.5 Hyperkalemia; E03.9 Hypothyroidism, unspecified; E78.5 Hyperlipidemia, unspecified; E11.42 Type 2 diabetes mellitus with diabetic polyneuropathy; T50.0X5A Adverse effect of mineralocorticoids and their antagonists, initial encounter; I87.2 Venous insufficiency (chronic) (peripheral); I48.91 Unspecified atrial fibrillation; Z79.01 Long term (current) use of anticoagulants; Z79.4 Long term (current) use of insulin; Z88.0 Allergy status to penicillin; Z88.5 Allergy status to narcotic agent; Z88.8 Allergy status to other drugs, medicaments and biological substances; Z79.890 Hormone replacement therapy; Z95.0 Presence of cardiac pacemaker; Z90.710 Acquired absence of both cervix and uterus; Z79.899 Other long term (current) drug therapy
CPT/HCPCS: 36415; 36416; 36600; 80053; 82805; 83735; 84100; 85025; 94660; J1815; J1940